=== PATIENT | female | born 1975 | race Caucasian/White ===

== ENCOUNTER 2016-10-03 18:55 | Emergency (ER) | payer MEDICAID ==
[~2016-10-03] VITALS: Ht 172.7 cm; Wt 68.9 kg
[2016-10-03 19:03] VITALS: BP 153/104
[2016-10-03] MEDS ORDERED: methylPREDNISolone SOD SUCC 125 MG/2 ML VL IM ONE (20:45)
[2016-10-03] MEDS ORDERED: cefTRIAXone SOD 1,000 MG VL IM ONE (20:45)
== END 2016-10-03 22:06 | disposition home or self-care (01) ==
LOC: ER 18:55
DX: J02.9 Acute pharyngitis, unspecified (principal); F20.9 Schizophrenia, unspecified
CPT/HCPCS: 96372; 99284; J0696; J2930

== ENCOUNTER 2025-02-13 03:08 | Inpatient (IN) | payer MEDICAID, OTHER ==
[2025-02-13] VITALS (32 sets, daily range): BP systolic 119–186; BP diastolic 63–88; PULSE 89–103; RESP 13–21; TEMP 98.1–98.3; O2SAT 91–99
[~2025-02-13] VITALS: Ht 172.7 cm; Wt 7.0 kg
--- NOTE | 2025-02-13 03:25 | ED.PDOC ---
HPI (NEURO) HPI Comments 49-year-old female came to ER due to weakness. Patient states about 30 minutes prior to arrival, she noted sudden onset left-sided weakness/numbness. Unable to hold anything with her left hand, and put any pressure on her left foot. Patient states feeling weak and fatigued all week, and has been having headaches since yesterday. She also noted having slurring of speech, but no facial asymmetry was seen. Upon arrival blood pressure was 191/103 mm Hg Chief Complaint: Left Sided Weakness Time Seen by MD: 03:24 Primary Care Provider: NONE Reviewed Notes: Nurses Notes Information Source: Patient Mode of Arrival: Ambulatory Severity: Moderate Dizziness/Weakness Severity: Unable to do activities Headache Severity: Moderate Timing: Minutes Duration: Since onset Prehospital treatment: None Headache Quality: Aching Headache Location: Generalized Weakness Location: (L) Sided Numbness Location: (L) Sided Onset: With light exertion Circumstances: Spontaneous Symptoms: Weakness, Numbness, Difficult speech History of: None Associated Signs and Symptoms: Headache, Weakness, Numbness Past Medical History PAST MEDICAL HISTORY: Depression Surgical History: Denies all surgeries [employer]EL[employer] 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 Family History Family History: Reviewed,noncontributory to illness Social History Smoker: Non-Smoker Alcohol: Denies ETOH Use Drugs: Denies Drug Use Lives In: Home Constitutional: denies: chills, diaphoresis, fatigue, fever, malaise, sweats, weakness, others EENTM: reports: blurred vision; denies: double vision, ear bleeding, ear discharge, ear drainage, ear pain, ear ringing, eye pain, eye redness, hearing l oss, mouth pain, mouth swelling, nasal discharge, nose bleeding, nose congestion, nose pain, photophobia, tearing, throat pain, throat swelling, voice changes, others Respiratory: denies: cough, hemoptysis, orthopnea, SOB at rest, shortness of breath, SOB with excertion, stridor, wheezing, others Cardiovascular: denies: chest pain, dizzy spells, diaphoresis, Dyspnea on exertion, edema, irregular heart beat, left arm pain, lightheadedness, palpitations, PND, syncope, others Gastrointestinal: denies: abdomen distended, abdominal pain, blood streaked bowels, constipated, diarrhea, dysphagia, difficulty swallowing, hematemesis, melena, nausea, poor appetite, poor fluid intake, rectal bleeding, rectal pain, vomiting, others Genitourinary: denies: abnormal vagina bleeding, burning, dyspareunia, dysuria, flank pain, frequency, hematuria, incontinence, pain, , vagina discharge, urgency, others Neurological: reports: headache, left sided numbness, left sided weakness, speech problems, weakness; denies: dizziness, fainting, numbness, paresthesia, pre-existing deficit, right sided numbness, right sided weakness, seizure, tingling, tremors, others Musculoskeletal: denies: back pain, gout, joint pain, joint swelling, muscle pain, muscle stiffness, neck pain, others Integumetry: denies: bruises, change in color, change in hair/nails, dryness, laceration, lesions, lumps, rash, wounds, others Allergic/Immunocompromised: denies: Difficulty Healing, Frequent Infections, Hives, Itching, others Hematologic/Lymphatic: denies: anemia, blood clots, easy bleeding, easy bruising, swollen glands, others Endocrine: denies: excessive hunger, excessive sweating, excessive thirst, excessive urination, flushing, intolerance to cold, intolerance to heat, unexplained weight gain, unexplained weight loss, others Psychiatric: denies: anxiety, bipolar disorder, depression, hopeless, panic disorder, schizophrenia, sleepless, suicidal, others Physical Exam General Appearance: No Apparent Distress, Normal HEENT: Normal ENT Inspection, Pharynx Normal, TMs Normal Neck: Full Range of Motion, Non-Tender, Normal, Normal Inspection Respiratory: Chest Non-Tender, Lungs Clear, No Accessory Muscle Use, No Respiratory Distress, Normal Breath Sounds Cardiovascular: No Edema, No JVD, No Murmur, No Gallop, Normal Peripheral Pulses, Regular Rate/Rhythm Breast Exam: Deferred Gastrointestinal: No Organomegaly, Non Tender, No Pulsatile Mass, Normal Bowel Sounds, Soft Genitalia: Deferred Pelvic: Deferred Rectal: Deferred Extremities: No calf tenderness, Normal capillary refill, Normal inspection, Normal range of motion, Non-tender, No pedal edema Musculoskeletal : Apperance: Normal Neurologic: Alert, slip filler II-XII nml as Tested, No Motor Deficits, Normal Affect, Normal Mood, No Sensory Deficits Cerebellar Function: Normal Reflexes: Normal Skin: Dry, Normal Color, Warm Lymphatic: No Adenopathy Was a procedure done? Was a procedure done?: No Differential Diagnosis (SZ) CVA: Alan's Palsy, CVA, Electrolyte Imbalance, Encephalopathy, Hypoglycemia, TIA X-Ray, Labs, Meds, VS Vital Signs Date Time Temp Pulse Resp B/P (MAP) Pulse Ox O2 Delivery O2 Flow Rate FiO2 02/13/25 03:49 171/92 02/13/25 03:35 Room Air* 0 21 02/13/25 03:35 97.9 99 22 171/92 (118) 95 97.9 02/13/25 03:31 101 02/13/25 03:09 98.1 71 18 173/95 97 98.1 Lab Test 02/13/25 03:26 Range/Units White Blood Count 7.3 4.4-10.8 10^3/uL Red Blood Count 4.38 4.0-5.20 10^6/uL Hemoglobin 7.9 L 12.2-16.2 g/dL Hematocrit 26.8 L 36.0-46.0 % Mean Corpuscular Volume 61.3 L 80.0-100.0 fL Mean Corpuscular Hemoglobin 18.1 L 28.0-32.0 pg Mean Corpuscular Hemoglobin Concent 29.5 L 32.0-36.0 g/dL Red Cell Distribution Width 22.0 H 11.8-14.3 % Platelet Count 681 H 140-450 10^3/uL Mean Platelet Volume 6.6 L 6.9-10.8 fL Neutrophils (%) (Auto) 55.7 37.0-80.0 % Lymphocytes (%) (Auto) 31.4 10.0-50.0 % Monocytes (%) (Auto) 7.6 0.0-12.0 % Eosinophils (%) (Auto) 3.7 0.0-7.0 % Basophils (%) (Auto) 1.6 0.0-2.0 % Neutrophils # (Auto) 4.1 1.6-8.6 10 ^3/uL Lymphocytes # (Auto) 2.3 0.4-5.4 10 ^3/uL Monocytes # (Auto) 0.6 0-1.3 10 ^3/uL Eosinophils # (Auto) 0.3 0-0.8 10 ^3/uL Basophils # (Auto) 0.1 0-0.2 10 ^3/uL Nucleated Red Blood Cells 0.1 % Platelet Estimate Increased Hypochromasia (manual) Moderate Anisocytosis (manual) Slight Microcytosis Moderate Prothrombin Time 10.3 9.3-11.8 sec Prothrombin Time INR 0.97 0.9-1.15 Activated Partial Thromboplast Time 20.7 L 24.5-34.5 SEC Sodium Level 139 136-145 mmol/L Potassium Level 3.1 L 3.5-5.1 mmol/L Chloride Level 105 98-107 mmol/L Carbon Dioxide Level 23 20-31 mmol/L Anion Gap 11 5-15 Blood Urea Nitrogen 14 9-23 mg/dL Creatinine 0.97 0.550-1.02 mg/dL Glomerular Filtration Rate Calc 71 >90 mL/min BUN/Creatinine Ratio 14.4 10.0-20.0 Serum Glucose 95 74-106 mg/dL Calcium Level 9.4 8.7-10.4 mg/dL Total Bilirubin 0.4 0.2-1.0 mg/dL Aspartate Amino Transferase (AST) 35 13-40 U/L Alanine Aminotransferase (ALT) 29 7-40 U/L Alkaline Phosphatase 114 46-116 U/L Troponin I High Sensitivity 11 </=34 ng/L Total Protein 8.3 H 5.7-8.2 g/dL Albumin 4.7 3.2-4.8 g/dL Current Medications Medications (Trade) Dose Ordered Sig/Abraham Route Start Time Stop Time Status Last Admin Hydralazine HCl (Apresoline Injection) 10 mg ONCE ONCE IV 02/13/25 03:45 02/13/25 03:46 DC 02/13/25 03:49 EXAM: CT HEAD WITHOUT CONTRAST HISTORY: left sided weakness COMPARISON: None TECHNIQUE: Noncontrast axial CT images of the head were performed. Sagittal and coronal reformatted images were obtained. This CT exam was performed using 1 or more of the following dose reduction techniques: Automated exposure control, adjustment of the mA and/or kv according to patient size, or the use of iterative reconstruction techniques. Radiation Dose: CTDI volume is 60.25 mGy. Dose-length product is 1185.42 mGy*cm FINDINGS: No intracranial hemorrhage, mass, midline shift, hydrocephalus, or evidence of acute large vessel infarct. There are old lacunar infarcts of the right basal ganglia and right frontal periventricular white matter. There is mildly divergent optic gaze. The partially-visualized paranasal sinuses are clear. The bilateral mastoid air cells and middle ear spaces are clear. No cranial fracture or scalp edema. IMPRESSION: Chronic ischemic changes without evidence of acute intracranial process. Time of 1ST Reevaluation: 03:20 Reevaluation 1ST: Unchanged Patient Education/Counseling: Diagnosis, Treatment Family Education/Counseling: No Family Present Departure 1 Departure Time of Disposition: 04:35 Impression: Primary Impression: Left-sided weakness Additional Impressions: Iron deficiency anemia Hypokalemia Disposition: ADMITTED INPATIENT Admit to: Tele Condition: Guarded Comments 49-year-old female has been having some left-sided weakness she states that is feels clumsy on her left arm in her left leg for the last 4 hours. Unprovoked. Her NIHSS scale is is 1 with some mild pronator drift to the left arm. She has a lack of focal deficits and therefore is not tPA thrombolytic candidate. Her CT of her head shows no acute pathology. Patient will need to be admitted that though with the left arm drift for TIA versus peripheral neuropathy. Patient was given aspirin. She was also given hydralazine for hypertension and noted to have hypokalemia on her lab results. Patient does have a history of anemia and her hemoglobin today is 7.9 and is microcytic likely iron deficiency anemia. Patient states that she does have a history of this in the past. NIH Stroke Scale/Score (NIHSS) from [employer] on 02/13/2025 All calculations should be rechecked by clinician prior to use RESULT SUMMARY: 1 points NIH Stroke Scale INPUTS: 1A: Level of consciousness > 0 = Alert; keenly responsive 1B: Ask month and age > 0 = Both questions right 1C: 'Blink eyes' & 'squeeze hands' > 0 = Performs both tasks 2: Horizontal extraocular movements > 0 = Normal 3: Visual sinclair > 0 = No visual loss 4: Facial palsy > 0 = Normal symmetry 5A: Left arm motor drift > 1 = Drift, but doesn't hit bed 5B: Right arm motor drift > 0 = No drift for 10 seconds 6A: Left leg motor drift > 0 = No drift for 5 seconds 6B: Right leg motor drift > 0 = No drift for 5 seconds 7: Limb Ataxia > 0 = No ataxia 8: Sensation > 0 = Normal; no sensory loss 9: Language/aphasia > 0 = Normal; no aphasia 10: Dysarthria > 0 = Normal 11: Extinction/inattention > 0 = No abnormality Critical Care Note Critical Care Time?: Yes (35 min-critical care time only) Stability Stability form required: No Heart Score Heart Score: Heart Score Response (Comments) Value History N/A 0 EKG N/A 0 Age N/A 0 Risk Factors N/A 0 Troponin N/A 0 Total 0 I personally scribed for POPPY RICHEY MD ([email or web address]) on 02/13/25 at 03:25. Electronically submitted by Cory Dennison ([employer]). I personally scribed for POPPY RICHEY MD ([email or web address]) on 02/13/25 at 04:22. Electronically submitted by Cory Dennison ([email or web address]). POPPY RICHEY MD Feb 13, 2025 03:25
[2025-02-13 03:42] LABS: Hemoglobin 7.9 g/dL (12.2-16.2)
[2025-02-13 03:44] LABS: Hematocrit 26.8 % (36.0-46.0); Mean Corpuscular Hemoglobin 18.1 pg (28.0-32.0); Mean Corpuscular Volume 61.3 fL (80.0-100.0); Nucleated Red Blood Cells % 0.1 %
[2025-02-13] MEDS: hydrALAZINE HCL 20 MG/ML VL IV ONE (03:49)
[2025-02-13 03:56] LABS: Alanine Aminotransferase 29 U/L (7-40); Albumin 4.7 g/dL (3.2-4.8); Alkaline Phosphatase 114 U/L (46-116); Anion Gap 11 (5-15); Anisocytosis Slight; BUN/Creatinine Ratio 14.4 (10.0-20.0); Bilirubin, Total 0.4 mg/dL (0.2-1.0); Blood Urea Nitrogen 14 mg/dL (9-23); Calcium 9.4 mg/dL (8.7-10.4); Carbon Dioxide 23 mmol/L (20-31); Chloride 105 mmol/L (98-107); Glucose 95 mg/dL (74-106); INR 0.97 (0.9-1.15); Partial Thromboplastin Time 20.7 SEC (24.5-34.5); Prothrombin Time 10.3 sec (9.3-11.8); Sodium 139 mmol/L (136-145)
[2025-02-13 03:59] LABS: Potassium 3.1 mmol/L (3.5-5.1); Total Protein 8.3 g/dL (5.7-8.2)
--- NOTE | 2025-02-13 04:10 | DVH ---
EXAM: CT HEAD WITHOUT CONTRAST HISTORY: left sided weakness COMPARISON: None TECHNIQUE: Noncontrast axial CT images of the head were performed. Sagittal and coronal reformatted i mages were obtained. This CT exam was performed using 1 or more of the following dose reduction techn iques: Automated exposure control, adjustment of the mA and/or kv according to patient size, or the u se of iterative reconstruction techniques. Radiation Dose: CTDI volume is 60.25 mGy. Dose-length product is 1185.42 mGy*cm FINDINGS: No intracranial hemorrhage, mass, midline shift, hydrocephalus, or evidence of acute large vessel inf arct. There are old lacunar infarcts of the right basal ganglia and right frontal periventricular whi te matter. There is mildly divergent optic gaze. The partially-visualized paranasal sinuses are clear . The bilateral mastoid air cells and middle ear spaces are clear. No cranial fracture or scalp edema . IMPRESSION: Chronic ischemic changes without evidence of acute intracranial process.
[2025-02-13] MEDS: POTASSIUM CHL 20 Meq TABLET PO ONE (04:45)
[2025-02-13] MEDS: LORazepam 2MG/ML-1ML VIAL IV ONE (04:45)
[2025-02-13] MEDS: IOHEXOL 350 MG/ML 100ML IJ ONE (04:49)
[2025-02-13 05:55] LABS: Iron 12.0 ug/dL (50-170)
[2025-02-13 05:56] LABS: Total Iron Binding Capacity 503.0 ug/dL (250-425)
--- NOTE | 2025-02-13 06:02 | ECG ---
[facility] Test Date: 2025-02-13 Test Time: 03:31:13 Pat Name: MICHOACANO TUCKER Department: ED Room: 0215T Gender: F Marriage Therapist: GEORGE : 1975 Requested By: POPPY RICHEY Order Number: [id number] Reading MD: Abdirahman De Leon Measurements Intervals [place] Rate: 101 P: 21 TN: 155 QRS: 95 QRSD: 101 T: 0 QT: 356 QTc: 462 Interpretive Statements Sinus tachycardia Borderline right axis deviation Borderline T abnormalities, inferior leads Electronically Signed On 02-15-2025 22:52:45 PDT by Abdirahman De Leon Please click the below link to view image of tracing.
--- NOTE | 2025-02-13 06:18 | DVH ---
EXAM: XY CHEST XRAY 1 VIEW HISTORY: SOB COMPARISON: None TECHNIQUE: Portable AP view of the chest was performed. FINDINGS: No pneumothorax, consolidative infiltrates, or pulmonary edema. The heart is borderline enlarged. The re is likely a moderate to large hiatal hernia. IMPRESSION: 1. No acute intrathoracic process. 2. Probable moderate to large hiatal hernia.
--- NOTE | 2025-02-13 06:26 | DVHINCON2 ---
Date of Consultation Date Date: 02/13/25 History of Present Illness History of Present Illness [facility] Note # Demographics Consult Type: Acute Stroke Level 2 (4.5-24 hrs) Patient Location: Emergency Room First Name: ADEOLA Last Name: GARRETT Date of : 1975 Age: 49 Gender: Female Facility: [facility] Time of Initial Page (): 02/13/2025 05:48 First Contact with Site (): 02/13/2025 05:49 # HPI Chief Complaint: - weakness (focal) - numbness History: 49yof with HTN, iron deficiency anemia who p/w L sided weakness and numbness. SBP 190s/100s. She was awake playing a game with her roommate when this occurred around 3:30AM. She denies any previous L sided weakness or any previous similar symptoms. Last Known Normal: - I have collected independent history specific to time last normal or last known well. We have collaborated with the provider and at this time, we have the most current timeline with the information that is available. 3:30AM Possible Thrombolytic candidate: - not on warfarin or NOACs - no intracranial hemorrhage history - no recent major surgery - no known active major internal bleeding - no known blood disorders - no stroke in last 3 months # Scores Time of exam and NIHSS (): 02/13/2025 06:03 Level of Consciousness 1a: [0] = Alert; keenly responsive LOC Questions 1b: [0] = Answers both questions correctly LOC Commands 1c: [0] = Performs both tasks correctly Best Gaze 2: [0] = Normal Visual 3: [0] = No visual loss Facial Palsy 4: [1] = Minor paralysis Motor Arm Left 5a: [1] = Drift Motor Arm Right 5b: [0] = No drift Motor Leg Left 6a: [1] = Drift Motor Leg Right 6b: [0] = No drift Limb Ataxia 7: [0] = Absent Sensory 8: [1] = [id number] sensory loss Best Language 9: [0] = No aphasia Dysarthria 10: [1] = [id number] dysarthria Extinction and Inattention 11: [0] = No abnormality NIHSS Total: 5 # Data Time Head CT personally read by me (): 02/13/2025 06:[address]: - no bleed - preliminarily reviewed by me, please refer to radiology read for official reading chronic R caudate infarcts Time CTA personally reviewed by me (): 02/13/2025 06:11 CTA Head: - no large vessel occlusion - preliminarily reviewed by me, please refer to radiology read for official reading # Assessment Impression: - Ischemic Stroke (Acute) # Plan Thrombolytic/Intervention: IV Thrombolysis Thrombolytic Dosing: IV tenecteplase 0.25 mg/kg, max dose 25 mg; single bolus IVP over 5 seconds Time IV Thrombolytic Recommended (): 02/13/2025 06:06 Blood Pressure Management: Use labetolol 10-20mg IV PRN or nicardipine gtt to maintain BP parameters Target Blood Pressure: BP goal <180/105 for 24 hours post thrombolytic administration Imaging: (urgency: STAT): - CT Angiogram Head and CT Angiogram Neck AND call back with results if abnormal - CT Perfusion AND callback with results if abnormal Imaging: (urgency: routine): - MRI Brain without contrast Diagnostic Test: - echo with bubble study Telemetry monitoring to assess for a fib Therapy/Evaluation: - NPO until swallow evaluation - PT/OT evaluation - speech/swallow consultation Medication: No antiplatelets or anticoagulation for next 24 hours unless indicated for emergent IA procedure or other life threatening situation Atorvastatin 80mg daily, goal LDL <70 Thrombolytic Administration Recommendations: - I reviewed the risks/benefits/alternatives of IV thrombolytic therapy with the patient. They understand there is potential of life threatening hemorrhage from IV thrombolysis. I stated that I believe benefits outweighs risk. They wish to proceed with IV thrombolytic therapy. - BP goal< 180/105 for 24hrs post Thrombolytic administration - Use Labetalol 10-20mg IV prn or Nicardipine gtt to maintain BP parameters - No antiplatelets or anticoagulants for next 24 hrs unless indicated for emergent IA procedure or other life threatening situation - ICU admission - Call back if there is any decline in neurological condition Other: - If patient has any neurological deterioration please call me back immediately - I have discussed my recommendations with the referring provider Additional Recommendations: Post thrombolytic monitoring and frequent neuro checks ICU admission # Logistics Attestation of consult completion: The patient is located at: [facility]. Facility staff participated in the visit. I performed this telemedicine visit from my offsite office utilizing interactive 2 way audio and visual telecommunication technology at the request of the onsite emergency room provider. Total time spent in telemedicine encounter: I spent 23 minutes reviewing clinical data and/or imaging, obtaining history, examining the patient, communi cating with the onsite care team, and in preparation of this report. # Demographics First Name: ADEOLA Last Name: [place] Facility: [facility] Allergies: Coded Allergies: NO KNOWN ALLERGIES (Unverified , 03/20/16) Physical Examination General Examination: Last Vital sign Vital Signs Date Time Temp Pulse Resp B/P (MAP) Pulse Ox O2 Delivery O2 Flow Rate FiO2 02/13/25 06:00 107 12 179/88 (118) 98 02/13/25 03:35 Room Air* 0 21 02/13/25 03:35 97.9 97.9 General: General: No apparent distress, appears comfortable. Cooperative. Neurological Examination: Neurological Examination: Mental Status: Cranial Nerves: Motor Examination: Reflexes: Sensory: Coordination: Gait: Labs: Labs: Laboratory Tests Test 02/13/25 03:26 02/13/25 05:49 Range/Units White Blood Count 7.3 4.4-10.8 10^3/uL Red Blood Count 4.38 4.0-5.20 10^6/uL Hemoglobin 7.9 L 12.2-16.2 g/dL Hematocrit 26.8 L 36.0-46.0 % Mean Corpuscular Volume 61.3 L 80.0-100.0 fL Mean Corpuscular Hemoglobin 18.1 L 28.0-32.0 pg Mean Corpuscular Hemoglobin Concent 29.5 L 32.0-36.0 g/dL Red Cell Distribution Width 22.0 H 11.8-14.3 % Platelet Count 681 H 140-450 10^3/uL Mean Platelet Volume 6.6 L 6.9-10.8 fL Neutrophils (%) (Auto) 55.7 37.0-80.0 % Lymphocytes (%) (Auto) 31.4 10.0-50.0 % Monocytes (%) (Auto) 7.6 0.0-12.0 % Eosinophils (%) (Auto) 3.7 0.0-7.0 % Basophils (%) (Auto) 1.6 0.0-2.0 % Neutrophils # (Auto) 4.1 1.6-8.6 10 ^3/uL Lymphocytes # (Auto) 2.3 0.4-5.4 10 ^3/uL Monocytes # (Auto) 0.6 0-1.3 10 ^3/uL Eosinophils # (Auto) 0.3 0-0.8 10 ^3/uL Basophils # (Auto) 0.1 0-0.2 10 ^3/uL Nucleated Red Blood Cells 0.1 % Platelet Estimate Increased Hypochromasia (manual) Moderate Anisocytosis (manual) Slight Microcytosis Moderate Prothrombin Time 10.3 9.3-11.8 sec Prothrombin Time INR 0.97 0.9-1.15 Activated Partial Thromboplast Time 20.7 L 24.5-34.5 SEC Sodium Level 139 136-145 mmol/L Potassium Level 3.1 L 3.5-5.1 mmol/L Chloride Level 105 98-107 mmol/L Carbon Dioxide Level 23 20-31 mmol/L Anion Gap 11 5-15 Blood Urea Nitrogen 14 9-23 mg/dL Creatinine 0.97 0.550-1.02 mg/dL Glomerular Filtration Rate Calc 71 >90 mL/min BUN/Creatinine Ratio 14.4 10.0-20.0 Serum Glucose 95 74-106 mg/dL Calcium Level 9.4 8.7-10.4 mg/dL Iron Level 12 L 50-170 ug/dL Total Iron Binding Capacity 503 H 250-425 ug/dL Percent Iron Saturation 2.4 L 15-50 % Ferritin Pending Total Bilirubin 0.4 0.2-1.0 mg/dL Aspartate Amino Transferase (AST) 35 13-40 U/L Alanine Aminotransferase (ALT) 29 7-40 U/L Alkaline Phosphatase 114 46-116 U/L Troponin I High Sensitivity 11 15 </=34 ng/L Total Protein 8.3 H 5.7-8.2 g/dL Albumin 4.7 3.2-4.8 g/dL Assessment/Plan Assessment/Plan Assessment and Plan:Adeola Orr is a 49 year old female who presents with Plan discussed with: Patient CHARITO BRAMBILA MD Feb 13, 2025 06:26
--- NOTE | 2025-02-13 06:29 | DVHHPRES ---
History of Present Illness Resident Creating Document: ALLEN ZALDIVAR History of Present Illness Ms. Terrance Orr is a 49-year-old female with no known allergies who presented to the ED with acute onset neurologic symptoms. Approximately 30 minutes prior to arrival, the patient developed slurred speech, left-sided weakn ess and gaze deviation. Initial examination she was noted to have dysarthria left lower extremity weakness(2/5 strenght), and left upper extremity weakness(3/5 strength). There was also evidence of divergent gaze. Head CT scan showed no acute intracranial hemorrhage but did reveal chronic ischemic changes and old lacunar infarcts in the right basal ganglia and right f rontal periventricular white matter. MRI of the head and CT scan of the neck are pending. After tele neurology consultation, the patient was deemed a candidate for IV tPA, as she presented within the 3-hour window and had no contraindications. Blood pressure goal prior to tPA initiation was set to less than 180/105. Nicardipine and hydralazine was used to control blood pressure, which was 191/103. Urine drug screen ordered. The patient was found to have potassium 3.1, which was repleted with KCl. EKG revealed no arrhythmia or ischemic changes.Neuro checks every 2 hours and we will admit the patient to ICU. Past medical history: Unknown, she is not aware of having hypertension or diabetes. Past surgical history: None Smoking history: 35 pack years. He 3.5 packs/day for 10 years. Alcohol: Occasionally Drugs: Denies marijuana use, phentermine PCP:Dr. Doherty Review of Systems Neurological: Weakness, Numbness Allergies: Coded Allergies: NO KNOWN ALLERGIES (Unverified , 03/20/16) Exam Vital Signs Vital Signs Date Time Temp Pulse Resp B/P (MAP) Pulse Ox O2 Delivery O2 Flow Rate FiO2 02/13/25 06:00 107 12 179/88 (118) 98 02/13/25 03:35 Room Air* 0 21 02/13/25 03:35 97.9 97.9 Exam Pt is lying on bed General Appearance: Alert, Oriented X3, Cooperative, Mild distress HEENT: Atraumatic, Mucous membranes moist/pink Respiratory: Clear to auscultation, Normal air movement, No added sounds Cardiovascular: Regular rate, Normal S1, Normal S2, No murmurs Abdominal/ : Active bowel sounds, Soft, no distention, no tenderness Extremities: No edema, Normal pulses, No tenderness/swelling Skin: No Significant rash, except past surgical scars Neuro: Gaze deviated,Dysarthria, left-sided weakness noted. Left arm strength 3/5 and left lower extremity strength 2/5. Psych/Mental Status: Mental status NL, Mood NL Nurse was there as claim professional during examination Labs/Xrays Labs Test 02/13/25 05:49 02/13/25 03:26 Range/Units Troponin I High Sensitivity 15 </=34 ng/L White Blood Count 7.3 4.4-10.8 10^3/uL Red Blood Count 4.38 4.0-5.20 10^6/uL Hemoglobin 7.9 L 12.2-16.2 g/dL Hematocrit 26.8 L 36.0-46.0 % Mean Corpuscular Volume 61.3 L 80.0-100.0 fL Mean Corpuscular Hemoglobin 18.1 L 28.0-32.0 pg Mean Corpuscular Hemoglobin Concent 29.5 L 32.0-36.0 g/dL Red Cell Distribution Width 22.0 H 11.8-14.3 % Platelet Count 681 H 140-450 10^3/uL Mean Platelet Volume 6.6 L 6.9-10.8 fL Neutrophils (%) (Auto) 55.7 37.0-80.0 % Lymphocytes (%) (Auto) 31.4 10.0-50.0 % Monocytes (%) (Auto) 7.6 0.0-12.0 % Eosinophils (%) (Auto) 3.7 0.0-7.0 % Basophils (%) (Auto) 1.6 0.0-2.0 % Neutrophils # (Auto) 4.1 1.6-8.6 10 ^3/uL Lymphocytes # (Auto) 2.3 0.4-5.4 10 ^3/uL Monocytes # (Auto) 0.6 0-1.3 10 ^3/uL Eosinophils # (Auto) 0.3 0-0.8 10 ^3/uL Basophils # (Auto) 0.1 0-0.2 10 ^3/uL Nucleated Red Blood Cells 0.1 % Platelet Estimate Increased Hypochromasia (manual) Moderate Anisocytosis (manual) Slight Microcytosis Moderate Prothrombin Time 10.3 9.3-11.8 sec Prothrombin Time INR 0.97 0.9-1.15 Activated Partial Thromboplast Time 20.7 L 24.5-34.5 SEC Sodium Level 139 136-145 mmol/L Potassium Level 3.1 L 3.5-5.1 mmol/L Chloride Level 105 98-107 mmol/L Carbon Dioxide Level 23 20-31 mmol/L Anion Gap 11 5-15 Blood Urea Nitrogen 14 9-23 mg/dL Creatinine 0.97 0.550-1.02 mg/dL Glomerular Filtration Rate Calc 71 >90 mL/min BUN/Creatinine Ratio 14.4 10.0-20.0 Serum Glucose 95 74-106 mg/dL Calcium Level 9.4 8.7-10.4 mg/dL Iron Level 12 L 50-170 ug/dL Total Iron Binding Capacity 503 H 250-425 ug/dL Percent Iron Saturation 2.4 L 15-50 % Total Bilirubin 0.4 0.2-1.0 mg/dL Aspartate Amino Transferase (AST) 35 13-40 U/L Alanine Aminotransferase (ALT) 29 7-40 U/L Alkaline Phosphatase 114 46-116 U/L Total Protein 8.3 H 5.7-8.2 g/dL Albumin 4.7 3.2-4.8 g/dL SEPSIS Sepsis Screen Date sepsis recognized/suspect: Feb 13, 2025 Time Sepsis recognized/suspect: 308 Recent Procedure: No On Antibiotic Therapy: No Respiratory Rate >20: No Heart Rate >90: No Temp<36 C (96.8 F) or >38.3 C: No SBP <90 or MAP <65 mmHG: No New Acute Mental Status Change: No Is the patient on CPAP, BIPAP,: No Physician Orders Troponin-I Hs (02/13/25 09:00) Troponin-I Hs (02/13/25 12:00) Heplock Iv (02/13/25 03:20) Troponin-I Hs (02/13/25 06:20) Head Without Contrast (02/13/25 03:20) Vital Signs .PER UNIT PROTOCOL (02/13/25 04:23) Angio Head/Neck (02/13/25 04:23) Chest Xray 1 View (02/13/25 04:23) * Neurology Consult (02/13/25 04:23) Nursing Dysphagia Screen (02/13/25 04:23) Neuro Checks Per Unit Protocol (02/13/25 04:23) Ferritin (02/13/25 05:31) Brain Head Wo Contrast (02/13/25 05:14) Admit (02/13/25 06:19) Allergies (02/13/25 06:19) Code Status (02/13/25 06:19) Oxygen Per Hour (02/13/25 06:19) Complete Blood Count (02/14/25 04:00) Npo (Nothing By Mouth) Diet (02/13/25 Breakfast) Notify Of Changes From Base (02/13/25 06:19) District Resource Officer For 24 Hours (02/13/25 06:19) Emergency Dysrhythmia Protocol (02/13/25 06:19) Rhythm Strips Once Every Shift (02/13/25 06:19) Vital Signs Date Time Temp Pulse Resp B/P (MAP) Pulse Ox O2 Delivery O2 Flow Rate FiO2 02/13/25 06:00 107 12 179/88 (118) 98 02/13/25 04:00 98 19 159/79 (105) 96 02/13/25 03:49 171/92 02/13/25 03:35 Room Air* 0 21 02/13/25 03:35 97.9 99 22 171/92 (118) 95 97.9 02/13/25 03:31 101 02/13/25 03:09 98.1 71 18 173/95 97 98.1 Laboratory Tests Test 02/13/25 03:26 White Blood Count 7.3 10^3/uL (4.4-10.8) Medications Medications Dose Ordered Sig/Abraham Route Start Time Stop Time Status Last Admin Dose Admin Aspirin 162 mg ONCE ONCE PO 02/13/25 04:45 02/13/25 04:46 DC 02/13/25 04:45 162 MG Hydralazine HCl 10 mg ONCE ONCE IV 02/13/25 03:45 02/13/25 03:46 DC 02/13/25 03:49 10 MG Lorazepam 1 mg ONCE ONCE IV 02/13/25 04:45 02/13/25 04:46 DC 02/13/25 04:45 1 MG Potassium Chloride 20 meq ONCE ONCE PO 02/13/25 04:45 02/13/25 04:46 DC 02/13/25 04:45 20 MEQ Assessment/Plan Assessment/Plan Acute ischemic stroke Head CT scan: No acute intracranial hemorrhage. Chronic ischemic changes without evidence of acute intracranial process. Old lacunar infarcts of the right basal ganglia and right frontal periventricular white matter. There is mildly divergent optic gaze. MRI of the head ordered, pending results. CT scan of the head and neck ordered, pending results. Neuro check every 2 hours. Tele neuro consulted. After discussion with the Neurologist and patient, we started tPA. There was no contraindication for administering tPA. Because the presentation of the stroke was within the 3-hour window. Recommended blood pressure before starting tPA is 180/105. NPO and swallow evaluation. Hypokalemia Repleted GI prophylaxis: Pantoprazole DVT prophylaxis: SCDs Diet: NPO until swallow evaluation Goals of care discussed with the patient for more than 27 minutes: Full code status Case discussed with , patient and RN Plan discussed with: Patient, Other My Orders Orders - ALLEN ZALDIVAR Procedure Category Date Status Time Brain Head Wo Contrast MRI 02/13/25 Logged 05:14 Admit ADMIT 02/13/25 Transmitted 06:19 Allergies [facility] 02/13/25 In Process 06:19 Code Status CODE 02/13/25 Transmitted 06:19 Oxygen Per Hour RT 02/13/25 Transmitted 06:19 Complete Blood Count LAB 02/14/25 Verified 04:00 Npo (Nothing By DIET 02/13/25 Transmitted Mouth) Diet Breakfast Notify Md Of Changes [facility] 02/13/25 In Process From Base 06:19 District Resource Officer For [facility] 02/13/25 In Process 24 Hours 06:19 Emergency Dysrhythmia [facility] 02/13/25 In Process Protocol 06:19 Rhythm Strips Once [facility] 02/13/25 In Process Every Shift 06:19 Date of Service: Feb 13, 2025 Billing Provider: MUNA MCMANUS MD Common Visit Codes: [id number] INP/OBS CARE (HIGH) Secondary Visit Codes: [id number] CARE PLAN 30 MINUTES ALLEN ZALDIVAR Feb 13, 2025 06:29
--- NOTE | 2025-02-13 06:37 | DVH ---
EXAM: CT ANGIO HEAD/NECK HISTORY: left sided weakness COMPARISON: CT HEAD WITHOUT CONTRAST on DOS: 02/13/25 TECHNIQUE: High-resolution helical CT images of the head and neck were performed with IV contrast uti lizing CTA protocol. Sagittal and coronal reformatted images and 3-D MIP reconstructions were obtaine d. This CT exam was performed using one or more of the following dose reduction techniques: Automated exposure control, adjustment of the mA and/or kV according to patient size, or use of iterative camelia nstruction technique. Radiation Dose: CT Dose: CTDI volume is 22.21 mGy. Dose-length product is 831.02 mGy*cm FINDINGS: [place] of [place]: No evidence of aneurysmal dilatation or significant stenosis about the ci rcle of [place]. The bilateral MCAs, ACAs, and glass etcher helper are widely patent. The cavernous and petrous ICAs are patent. Right carotid system: No significant stenosis of the CCA, ICA, or ECA origin. The cervical ICA is tor tuous. Left carotid system: No significant stenosis of the CCA, ICA, or ECA origin. The cervical ICA is tort uous. Vertebrobasilar: The bilateral vertebral arteries and basilar artery are patent. The left vertebral a rtery is dominant. Miscellaneous: There are hypoattenuating nodules in the right lobe of the thyroid. There is palatine tonsillar hypertrophy with mild narrowing of the oropharyngeal airway, without evidence of tonsillar abscess. There are multiple dental caries. There is mucosal thickening of the left frontal and bilate ral ethmoid sinuses there is advanced degenerative disc disease C5-C6 and C6-C7, with [id number] e spinal canal stenosis at those levels. There is bilateral facet arthropathy, overall greater on th e left. There is significant neural foraminal stenosis at C5-C6 on the right and C6-C7 bilaterally. IMPRESSION: 1. No aneurysmal dilatation or significant stenosis about the [place] of [place]. 2. No significant stenosis of the bilateral cervical carotid arteries or vertebral arteries. 3. Mild paranasal sinus disease. 4. [place] tonsillar hypertrophy with mild narrowing of the oropharyngeal airway, without evidence o f tonsillar abscess. 5. Multiple dental caries. Recommend outpatient dental consultation. 6. Thyroid nodules. Recommend outpatient thyroid ultrasound. 7. Cervical degenerative disc disease and facet arthropathy with [id number] spinal canal stenos is at C5-C6 and C6-C7, multilevel significant neural foraminal stenosis as above. Recommend follow-u p outpatient noncontrast MRI of the cervical spine for better characterization as there may be mass e ffect on the cervical spinal cord at multiple levels.
[2025-02-13] MEDS ORDERED: ALTEPLASE (RECOMBINANT) 100 MG VIAL IV ONE (06:45)
[2025-02-13] MEDS: TENECTEPLASE 50mg/10ml KIT IV ONE ×2 (06:53→06:57)
[2025-02-13 07:12] LABS: Hematocrit 25.9 % (36.0-46.0); Hemoglobin 7.7 g/dL (12.2-16.2); Mean Corpuscular Hemoglobin 18.1 pg (28.0-32.0); Mean Corpuscular Volume 61.1 fL (80.0-100.0); Nucleated Red Blood Cells % 0.0 %
[2025-02-13 07:30] LABS: INR 1.0 (0.9-1.15); Partial Thromboplastin Time 21.1 SEC (24.5-34.5); Prothrombin Time 10.6 sec (9.3-11.8)
[2025-02-13 07:32] LABS: Alanine Aminotransferase 29 U/L (7-40); Albumin 4.4 g/dL (3.2-4.8); Alkaline Phosphatase 108 U/L (46-116); Anion Gap 12 (5-15); BUN/Creatinine Ratio 10.8 (10.0-20.0); Bilirubin, Total 0.4 mg/dL (0.2-1.0); Blood Urea Nitrogen 9 mg/dL (9-23); Calcium 8.9 mg/dL (8.7-10.4); Carbon Dioxide 20 mmol/L (20-31); Chloride 106 mmol/L (98-107); Glucose 87 mg/dL (74-106); Potassium 3.0 mmol/L (3.5-5.1); Sodium 138 mmol/L (136-145); Total Protein 7.9 g/dL (5.7-8.2)
[2025-02-13] MEDS: NICARDIPINE HCL IN SODIUM CHLO 200 ML IV SCH (08:40)
--- NOTE | 2025-02-13 09:28 | DVHPN2 ---
Subjective Continues to have complaints of weakness to left arm and leg. She does state that her left arm has improved since coming in the hospital. Reviewed: Care Plan, H&P, Labs Changes from previous H/P or p: No Changes General: Per HPI Objective Vitals Vital Signs Date Time Temp Pulse Resp B/P (MAP) Pulse Ox O2 Delivery O2 Flow Rate FiO2 02/13/25 08:40 157/77 02/13/25 08:15 103 20 97 02/13/25 07:45 97.9 97.9 02/13/25 07:45 Room Air* 0 21 General Appearance: Alert, Oriented X3, Cooperative, mild distress HEENT: Atraumatic, PERRLA Lungs: Clear to auscultation, Normal air movement Cardiovascular: Normal S1, Normal S2 Abdomen: Normal bowel sounds, Soft, No tenderness Genitourinary: No Apparent Abnormalities Musculoskeletal: Weak motor strength LUE, Weak motor strength LLE Extremities: No clubbing, No cyanosis, No edema, Normal pulses, No tenderness/swelling Neuro: Normal speech Skin: Dry, Intact Psych/Mental Status: Mental status NL, Mood NL Medications Current Medications Medications Dose Ordered Sig/Abraham Route Start Time Stop Time Status Last Admin Dose Admin Nicardipine/ Sodium Chloride 200 ml @ 50 mls/hr Q4H IV 02/13/25 06:45 02/13/25 08:40 50 MLS/HR Potassium Chloride/Sodium Chloride 1,000 ml @ 100 mls/hr Q10H IV 02/13/25 09:00 UNV Laboratory Results Laboratory Tests 02/13/25 06:55 Chemistry Test 02/13/25 03:26 02/13/25 06:55 Albumin 4.7 g/dL (3.2-4.8) 4.4 g/dL (3.2-4.8) Calcium Level 9.4 mg/dL (8.7-10.4) 8.9 mg/dL (8.7-10.4) Total Protein 8.3 g/dL (5.7-8.2) H 7.9 g/dL (5.7-8.2) Coagulation Test 02/13/25 03:26 02/13/25 06:55 Prothrombin Time 10.3 sec (9.3-11.8) 10.6 sec (9.3-11.8) Prothrombin Time INR 0.97 (0.9-1.15) 1.00 (0.9-1.15) Activated Partial Thromboplast Time 20.7 SEC (24.5-34.5) L 21.1 SEC (24.5-34.5) L LFT Test 02/13/25 03:26 02/13/25 06:55 Alanine Aminotransferase (ALT) 29 U/L (7-40) 29 U/L (7-40) Alkaline Phosphatase 114 U/L (46-116) 108 U/L (46-116) Aspartate Amino Transferase (AST) 35 U/L (13-40) 35 U/L (13-40) Total Bilirubin 0.4 mg/dL (0.2-1.0) 0.4 mg/dL (0.2-1.0) Labs and/or images reviewed: Labs reviewed by me, Image(s) reviewed by me Assessment/Plan Assessment/Plan Impression: -acute CVA -hypokalemia -hypertensive crisis Plan: -permissive hypertensive, controlled blood pressure with nicardipine drip to keep systolic blood pressure greater than 180 and diastolic blood pressure less than 105 -potassium replacement -gentle IV hydration -PUD prophylaxis -no vena puncture for 24 hours after tPA infusion -q.2 hours neuro checks -repeat labs in a.m. -echocardiogram with bubble study Critical care time spent with patient discussing and formulating plan of care: 40 minutes. This does not include time spent performing procedures. This medical document was created using an electronic medical record system with [employer] dictation system. Although this document has been carefully reviewed, there may still be some phonetic and typographical errors. These areas are purely typographical due to imperfections of the software programs, and do not reflect any compromise in the patient's medical care. Plan discussed with: Patient, Other (RN) My Orders Orders - ERWIN SWAIN NP Procedure Category Date Status Time Echo 2d Mode Cardiac US 02/13/25 Logged DOP 08:52 Sod Chl 0.9%/ Kcl PHA 02/13/25 Logged 20meq 09:00 Drug Screen LAB 02/13/25 Logged 08:56 Date of Service: Feb 13, 2025 Billing Provider: ERWIN SWAIN NP Common Visit Codes: [id number] CARE 30-74 MIN ERWIN SWAIN NP Feb 13, 2025 09:27
[2025-02-13 10:31] LABS: Amphetamine Screen, Urine Pos (NEGATIVE); Barbiturate Scree,Urine Neg (NEGATIVE); Benzodiazephine Screen, Urine Neg (NEGATIVE); Cannabinoid Screen, Urine Neg (NEGATIVE); Cocaine Screen, Urine Neg (NEGATIVE); Opiate Scree,Urine Neg (NEGATIVE); Phencyclidine Screen, Urine Neg (NEGATIVE)
[2025-02-13] MEDS: SOD CHL 0.9%/ KCL 20MEQ 1,000 ML IV SCH (10:44)
--- NOTE | 2025-02-13 15:57 | DVH ---
MRI BRAIN HEAD WO CONTRAST INDICATION: R/o acute ischemic stroke EXAM DATE: 02/13/2025 03:04 PM COMPARISON: CT ANGIO HEAD/NECK on DOS: 02/13/25, CT HEAD WITHOUT CONTRAST on DOS: 02/13/25 PROCEDURE: Using a 1.5 Samantha scanner, multisequence multiplanar imaging of the brain was obtained. FINDINGS: Tiny foci of acute infarct along the right caudate body. The brain otherwise shows normal m orphology and signal characteristics. No abnormal T2 hyperintensity, or susceptibility hypointensity is present. The ventricles are normal in size. The midline structures are intact. The major intracran ial flow voids are present. The aerated spaces are normal. The orbital contents and extracranial soft tissues appear normal. IMPRESSION: Tiny foci of acute infarct along the right caudate body / right parietal lobe. Critical Result: Infarct Findings discussed with dr. murphy at 02/13/2025 03:53 PM and acknowledged receipt and understanding of the findings.
[2025-02-13] MEDS ORDERED: LABETALOL HCL 20 MG/4 ML VL IV PRN (16:45)
[2025-02-14] VITALS (60 sets, daily range): BP systolic 124–198; BP diastolic 66–97; PULSE 81–101; RESP 13–25; TEMP 98.1–98.7; O2SAT 93–100
--- NOTE | 2025-02-14 03:12 | DVHSR ---
APPROVED REPORT EXAM: Two-dimensional and M-mode echocardiogram with Doppler, color Doppler and Bubble Study. Blood Pressure: 157/77 mmHg INDICATION Acute CVA RISK FACTORS Height: 5' 8", Weight: 187 DIMENSIONS LVDd4.6 (3.8-5.7cm)LA (2D)3.7 (1.9-4.0cm)Aortic Root2.9 (2.0-3.7cm) LVDs3.1 (2.5-4.0cm)LA (MM) (1.9-4.0cm)Aortic Cusp Exc1.6 (1.5-2.0cm) EF (%) 60.0 (55-70%)Rt. Atrium4.1 (1.9-4.0cm)Asc. Aorta cm IVSd1.1 (0.7-1.1cm)RV (D) (1.8-2.4cm) PWd1.1 (0.7-1.1cm) Mitral Valve MitralMitral Stenosis E wave0.90m/sMV Mean GR.mmHg A wave1.20m/sMV Peak GR.mmHg E/A ratio0.82D MVAcm2 Aortic Valve Aortic ValveAortic Stenosis V11.30m/Jimenez Mean GR.13mmHg V22.40m/Jimenez Peak GR.24mmHg LVOT Diameter2.3 (1.8-2.4cm)Doppler AVA2.25cm2 Pulmonic Valve V21.30m/s Conclusion HYPERDYNAMIC LV DUE TO TACHYCARDIA LV EF IS 70% NORMAL VALVES NORMAL RV FUNCTION NO EFFUSION
--- NOTE | 2025-02-14 09:12 | DVH ---
CT HEAD WITHOUT CONTRAST Indication: s/p TPA infusion for Acute CVA EXAM DATE: 02/14/2025 08:24 AM COMPARISON: MRI BRAIN HEAD WO CONTRAST on DOS: 02/13/25, TECHNIQUE: CT of the head without intravenous contrast. RADIATION DOSE: CTDIvol: 57.35 mGy, DLP: 919 mGy*cm FINDINGS: There is no intracranial hemorrhage. There is no extra-axial fluid, mass, mass effect or midline shif t. The ventricles are midline and normal in size. Basilar cisterns are patent. Old bilateral basal ga nglia lacunar infarcts. Old right dodson radiata infarct. Evolving acute right dodson radiata infarc tion. Mastoids well pneumatized. Ethmoid sinus mucosal thickening.. Imaged portion of the orbits are unrema rkable. IMPRESSION: No intracranial hemorrhage or mass effect. Evolving acute right dodson radiata infarction better seen on previous MRI. Old bilateral basal ganglia lacunar infarcts. Old right dodson radiata infarct.
[2025-02-14 09:50] LABS: Hematocrit 24.8 % (36.0-46.0); Hemoglobin 7.2 g/dL (12.2-16.2); Mean Corpuscular Hemoglobin 18.0 pg (28.0-32.0)
[2025-02-14 09:51] LABS: Mean Corpuscular Volume 61.9 fL (80.0-100.0); Nucleated Red Blood Cells % 0.1 %
--- NOTE | 2025-02-14 10:06 | DVHPN2 ---
Subjective Motor deficits resolved. Patient denies any symptoms. Reviewed: Care Plan, H&P, Labs Changes from previous H/P or p: Changes General: Per HPI Objective Vitals Vital Signs Date Time Temp Pulse Resp B/P (MAP) Pulse Ox O2 Delivery O2 Flow Rate FiO2 02/14/25 09:49 98 02/14/25 09:48 16 97 Room Air* 0 21 02/14/25 09:45 02/14/25 08:00 98.7 98.7 Intake/Output Intake and Output 02/14/25 07:00 Intake Total 2862 ml Balance 2862 ml Intake Oral 500 ml IV Total 2362 ml # Voids 2 General Appearance: Alert, Oriented X3, Cooperative, mild distress HEENT: Atraumatic, PERRLA Lungs: Clear to auscultation, Normal air movement Cardiovascular: Normal S1, Normal S2 Abdomen: Normal bowel sounds, Soft, No tenderness Genitourinary: No Apparent Abnormalities Musculoskeletal: Normal sensory function, Normal motor function Extremities: No clubbing, No cyanosis, No edema, Normal pulses, No tenderness/swelling Neuro: Normal speech Skin: Dry, Intact Psych/Mental Status: Mental status NL, Mood NL Medications Current Medications Medications Dose Ordered Sig/Abraham Route Start Time Stop Time Status Last Admin Dose Admin Labetalol HCl 10 mg Q2HPRN PRN IV 02/13/25 16:45 Melatonin 10 mg PRN PO 02/13/25 20:30 Acetaminophen 650 mg Q8HPRN PRN PO 02/13/25 20:45 Ferrous Sulfate 325 mg BIDWM PO 02/14/25 18:00 Amlodipine Besylate 10 mg DAILY PO 02/14/25 10:00 Laboratory Results Laboratory Tests 02/14/25 09:38 Chemistry Test 02/14/25 09:38 Albumin Pending Calcium Level Pending Total Protein Pending LFT Test 02/14/25 09:38 Alanine Aminotransferase (ALT) Pending Alkaline Phosphatase Pending Aspartate Amino Transferase (AST) Pending Total Bilirubin Pending Labs and/or images reviewed: Labs reviewed by me, Image(s) reviewed by me Assessment/Plan Assessment/Plan Impression: -acute CVA -hypokalemia -hypertensive crisis Plan: Events: Patient has regained movement to left upper and lower extremity. Noted to be ambulating. Patient also left against medical advice to smoke yesterday while in the emergency room. Long discussion made with the patient regarding abstaining from all illicit drugs and alcohol. UDS positive for amphetamines. Repeat CT scan of the head negative for any signs of intracranial hemorrhage. -advance diet. Stop IV fluids -PUD prophylaxis -q.2 hours neuro checks -repeat labs in a.m. -echocardiogram with bubble study: Unremarkable -transferred to telemetry floor -start p.o. antihypertensives Total time spent with patient discussing and formulating plan of care: 35 minutes. This medical document was created using an electronic medical record system with [employer] dictation system. Although this document has been carefully reviewed, there may still be some phonetic and typographical errors. These areas are purely typographical due to imperfections of the software programs, and do not reflect any compromise in the patient's medical care. Plan discussed with: Patient, Other (RN) My Orders Orders - ERWIN SWAIN NP Procedure Category Date Status Time Labetalol Hcl PHA 02/13/25 In Process (Labetalol Hcl) 16:45 Cardiac DIET 02/13/25 Transmitted Diet-2gna,Lofat,Lochol Dinner Mrsa Screen REYNA 02/13/25 In Process 17:[address] 02/14/25 Resulted 08:08 Ferrous Sulfate Tablet PHA 02/14/25 In Process 18:00 Transfer Orders XFER 02/14/25 Transmitted 09:46 Amlodipine Tablet PHA 02/14/25 In Process (Norvasc Tablet) 10:00 Date of Service: Feb 14, 2025 Billing Provider: ERWIN SWAIN NP Common Visit Codes: [id number] INP/OBS CARE(HIGH) ERWIN SWAIN NP Feb 14, 2025 10:06
[2025-02-14 10:09] LABS: Alanine Aminotransferase 25 U/L (7-40); Albumin 4.0 g/dL (3.2-4.8); Alkaline Phosphatase 113 U/L (46-116); Anion Gap 8 (5-15); BUN/Creatinine Ratio 12.0 (10.0-20.0); Bilirubin, Total 0.7 mg/dL (0.2-1.0); Carbon Dioxide 22 mmol/L (20-31); Sodium 139 mmol/L (136-145); Total Protein 7.1 g/dL (5.7-8.2)
[2025-02-14 10:34] LABS: Blood Urea Nitrogen 9 mg/dL (9-23); Calcium 8.1 mg/dL (8.7-10.4); Chloride 109 mmol/L (98-107); Glucose 129 mg/dL (74-106); Potassium 3.3 mmol/L (3.5-5.1)
[2025-02-14] MEDS: POTASSIUM CHL 20 Meq TABLET PO ONE (11:58)
[2025-02-14] MEDS: FERROUS SULFATE 325mg EC TAB PO SCH (16:13)
--- NOTE | 2025-02-14 18:13 | DVHINCON2 ---
Date of service: Feb 14, 2025 Referring Physician Ben Reason for Consultation Acute stroke History of Present Illness Ms. Roe with a 49 years old right-handed female with a history of overweight, she was brought to the [facility] on 02/13/2025 with a chief complaint of left-sided weakness. At that time, he is alert and fully oriented, her 's with her in the room, they provided the following hist ory On 02/13/2025, she developed acute memory difficulty, and left-sided weakness in that she was not able to apple picker a can of Coke, in the emergency room, after tele stroke consultation, the patient has received TNK protocol with good result, at this time, she is released the memory and left-sided weakness has completely recovered She denies history of hypertension, diabetes, she does not snore UDS, 02/03/2025: Amphetamine WBC/HB/PLT/MCV, 02/14/2025: 5.8/7.2/590/61.9 CMP, 02/14/2025: Unremarkable Echocardiogram, 02/14/2025: HYPERDYNAMIC LV DUE TO TACHYCARDIA LV EF IS 70% NORMAL VALVES NORMAL RV FUNCTION NO EFFUSION CT head, 02/13/2025: Chronic ischemic changes without evidence of acute intracranial process. CTA head, neck, 02/13/2025: 1. No aneurysmal dilatation or significant stenosis about the [place]. 2. No significant stenosis of the bilateral cervical carotid arteries or vertebral arteries. 3. Mild paranasal sinus disease. 4. Jeremiah tonsillar hypertrophy with mild narrowing of the oropharyngeal airway, without evidence of tonsillar abscess. 5. Multiple dental caries. Recommend outpatient dental consultation. 6. Thyroid nodules. Recommend outpatient thyroid ultrasound. 7. Cervical degenerative disc disease and facet arthropathy with [id number] spinal canal stenosis at C5-C6 and C6-C7, multilevel significant neural foraminal stenosis as above. Recommend follow-up outpatient noncontrast MRI of the cervical spine for better characterization as there may be mass effect on the cervical spinal cord at multiple levels. MRI head, 02/13/25: Tiny foci of acute infarct along the right caudate body / right parietal lobe. Past Medical History Depression, overweight Past Surgical History No major surgeries Family History COPD Social History She smokes, but no history of drug/alcohol abuse Allergies: Coded Allergies: NO KNOWN ALLERGIES (Unverified , 9/20/16) Current Medications Current Medications Medications (Trade) Dose Ordered Sig/Abraham Route PRN Reason Start Time Stop Time Status Last Admin Melatonin (Melatonin) 10 mg PRN PO 02/13/25 20:30 Acetaminophen (Tylenol Tablet) 650 mg Q8HPRN PRN PO PAIN SCALE 1-3 OR TEMP>100.4 02/13/25 20:45 Ferrous Sulfate 325 mg BIDWM PO 02/14/25 18:00 02/14/25 16:13 Amlodipine Besylate (Norvasc Tablet) 10 mg DAILY PO 02/14/25 10:00 02/14/25 10:07 Review of Systems As above, the other systems are negative Vital Signs Vital Signs Date Time Temp Pulse Resp B/P (MAP) Pulse Ox O2 Delivery O2 Flow Rate FiO2 02/14/25 17:38 92 02/14/25 17:37 16 97 Room Air* 0 21 02/14/25 17:00 124/77 (93) 02/14/25 12:00 98.1 98.1 Physical Exam GENERAL EXAM: General: the patient is well developed and nourished. No acute distress. HEENT: Normocephalic, neck is supple, no carotid bruits. No mass. RESPIRATORY: Normal respiratory effort with symmetrical lung expansion. Lungs clear to auscultation. CARDIOVASCULAR: Regular rate and rhythm with no murmurs. S1, S2. ABDOMEN: Soft, nontender, normal bowel sound MUSCULOSKELETAL EXAM: No pain in the knees NEUROLOGICAL: MENTAL STATUS: Awake and alert. Oriented to person, place, time and general circumstances. Able to give personal history. SPEECH, LANGUAGE, HIGHER CORTICAL FUNCTION: no aphasia or dysathria. CRANIAL NERVES: #2: Intact visual sinclair to confrontation. The optic discs were sharp. Retinal background was uniformly pink in appearance. There was no hemorrhages or exudates. #3,4,6: Pupils are equal, round and reactive. EOMs full and conjugate. Mild bilateral gaze evoked nystagmus. #5: Facial sensation intact in all three divisions bilaterally. Mandibular strength intact. #7: Facial muscles symmetrical and strength intact. #8: Hearing grossly normal to voice. #9,10: Uvula and soft palate rise in the midline. Swallow and voice are normal. #11: Trapezius and sternomastoid strength intact bilaterally. #12: Tongue midline. No fasciculations or atrophy. SENSATION: Sensation to touch and pinprick is normal. MOTOR: Normal tone in the upper and lower extremity. Normal muscle bulk. No fasciculations. No abnormal movements or posturing. Muscle strength of the major groups in the right extremities is 5/5. Muscle strength of the major groups in the left extremities is close to 5/5, with mild drift in both arms and leg REFLEXES: Deep tendon reflexes are symmetrical. No pathological reflexes. CEREBELLAR/COORDINATION: Finger to nose and heel to mckee are normal bilaterally. GAIT/STATION: deferred. Labs/Diagnostic Data Labs Test 02/14/25 09:38 02/13/25 08:56 02/13/25 06:55 02/13/25 03:26 Range/Units White Blood Count 5.8 # 4.4-10.8 10^3/uL Red Blood Count 4.00 4.0-5.20 10^6/uL Hemoglobin 7.2 L 12.2-16.2 g/dL Hematocrit 24.8 L 36.0-46.0 % Mean Corpuscular Volume 61.9 L 80.0-100.0 fL Mean Corpuscular Hemoglobin 18.0 L 28.0-32.0 pg Mean Corpuscular Hemoglobin Concent 29.1 L 32.0-36.0 g/dL Red Cell Distribution Width 22.7 H 11.8-14.3 % Platelet Count 590 H 140-450 10^3/uL Mean Platelet Volume 6.5 L 6.9-10.8 fL Neutrophils (%) (Auto) 58.0 37.0-80.0 % Lymphocytes (%) (Auto) 27.3 10.0-50.0 % Monocytes (%) (Auto) 8.4 0.0-12.0 % Eosinophils (%) (Auto) 4.8 0.0-7.0 % Basophils (%) (Auto) 1.5 0.0-2.0 % Neutrophils # (Auto) 3.4 1.6-8.6 10 ^3/uL Lymphocytes # (Auto) 1.6 0.4-5.4 10 ^3/uL Monocytes # (Auto) 0.5 0-1.3 10 ^3/uL Eosinophils # (Auto) 0.3 0-0.8 10 ^3/uL Basophils # (Auto) 0.1 0-0.2 10 ^3/uL Nucleated Red Blood Cells 0.1 % Sodium Level 139 136-145 mmol/L Potassium Level 3.3 L 3.5-5.1 mmol/L Chloride Level 109 H 98-107 mmol/L Carbon Dioxide Level 22 20-31 mmol/L Anion Gap 8 5-15 Blood Urea Nitrogen 9 9-23 mg/dL Creatinine 0.75 0.550-1.02 mg/dL Glomerular Filtration Rate Calc 97 >90 mL/min BUN/Creatinine Ratio 12.0 10.0-20.0 Serum Glucose 129 H 74-106 mg/dL Calcium Level 8.1 L 8.7-10.4 mg/dL Total Bilirubin 0.7 0.2-1.0 mg/dL Aspartate Amino Transferase (AST) 30 13-40 U/L Alanine Aminotransferase (ALT) 25 7-40 U/L Alkaline Phosphatase 113 46-116 U/L Total Protein 7.1 5.7-8.2 g/dL Albumin 4.0 3.2-4.8 g/dL Urine Opiates Screen Neg NEGATIVE Urine Fentanyl Screen Neg NEGATIVE Urine Barbiturates Screen Neg NEGATIVE Urine Phencyclidine Screen Neg NEGATIVE Urine Amphetamines Screen Pos NEGATIVE Urine Benzodiazepines Screen Neg NEGATIVE Urine Cocaine Screen Neg NEGATIVE Urine Cannabinoids Screen Neg NEGATIVE Prothrombin Time 10.6 9.3-11.8 sec Prothrombin Time INR 1.00 0.9-1.15 Activated Partial Thromboplast Time 21.1 L 24.5-34.5 SEC Troponin I High Sensitivity 14 </=34 ng/L Platelet Estimate Increased Hypochromasia (manual) Moderate Anisocytosis (manual) Slight Microcytosis Moderate Iron Level 12 L 50-170 ug/dL Total Iron Binding Capacity 503 H 250-425 ug/dL Percent Iron Saturation 2.4 L 15-50 % Ferritin 4.0 L 10-291 ng/mL Microbiology Date/Time Source Procedure Growth Status 02/13/25 17:28 Nose MRSA Screen - Final Methicillin Resistant S.aureus Complete Assessment Acute cognitive dysfunction, left hemiparesis, secondary to acute stroke, good recovery Acute memory loss Secondary to acute stroke ? Partial complex seizure Plan/Recommendation Monitoring Supportive treatment Telemetry EEG Lipid profile VISH Aspirin 81 mg daily Plavix 75 mg daily for 21 days Lipitor 20 mg for now Quit smoking Stroke risk factors discussed, include tobacco smoking, sleep related breathing disorder, substance abuse Healthy lifestyle discussed More recommendation per clinical course This medical document was created using an electronic medical record system with [employer] dictation system. Although this document has been carefully reviewed, there may still be some phonetic and typographical errors. These areas are purely typographical due to imperfections of the software programs, and do not reflect any compromise in the patient's medical care. Plan discussed with: Patient, Spouse, Other LAUREN ZAMARRIPA MD Feb 14, 2025 18:13
[2025-02-14] MEDS: ACETAMINOPHEN 325 MG TAB PO PRN (18:24)
[2025-02-14 20:50] LABS: Triglycerides 68 mg/dL (< 150)
[2025-02-14 20:52] LABS: Cholesterol 141 mg/dL (< 200); HDL Cholesterol 44 mg/dL (40-59)
[2025-02-14] MEDS: ATORVASTATIN 20 MG TAB PO SCH (22:08)
[2025-02-14] MEDS: ATORVASTATIN 20 MG TAB PO ONE (22:08)
[2025-02-14] MEDS: MELATONIN 5 MG TAB PO SCH (22:09)
[2025-02-15] VITALS (7 sets, daily range): BP systolic 122–158; BP diastolic 67–94; PULSE 83–101; RESP 14–20; TEMP 97.2–98.9; O2SAT 96–98
--- NOTE | 2025-02-15 01:16 | DVHINCON2 ---
Date of service: Feb 14, 2025 Referring Physician Thomas Reason for Consultation VISH History of Present Illness This is a 49-year-old female who presented to the ED on 02/13 with c/o sudden onset left-sided weakness/numbness. Unable to hold anything with her left hand, and put any pressure on her left foot. Patient states feeling weak and fatigued all week, and has been having headaches. CT Head showed no acute intracranial hemorrhage but did reveal chronic ischemic changes and old lacunar infarcts in the right basal ganglia and right frontal periventricular white matter. Tele neurology consultation, the patient was deemed a candidate for IV tPA, as she presented within the 3-hour window and had no contraindications. Blood pressure goal prior to tPA initiation was set to less than 180/105. Nicardipine and hydralazine was used to control blood pressure, which was 191/103. EKG revealed no arrhythmia or ischemic changes. Patient was admitted to the hospital. MRI brain: Tiny foci of acute infarct along the right caudate body / right parietal lobe. I am asked to consult on this patient. Allergies: Coded Allergies: NO KNOWN ALLERGIES (Unverified , 03/20/16) Current Medications Current Medications Medications (Trade) Dose Ordered Sig/Abraham Route PRN Reason Start Time Stop Time Status Last Admin Ferrous Sulfate 325 mg BIDWM PO 02/14/25 18:00 02/14/25 16:13 Amlodipine Besylate (Norvasc Tablet) 10 mg DAILY PO 02/14/25 10:00 02/14/25 10:07 Atorvastatin Calcium (Lipitor) 20 mg HS PO 02/14/25 22:00 02/14/25 22:08 Clopidogrel Bisulfate (Plavix) 75 mg DAILY PO 02/15/25 10:00 03/08/25 23:00 Review of Systems Constitutional: denies: chills, diaphoresis, fatigue, fever, malaise, sweats, weakness, others EENTM: reports: blurred vision; denies: double vision, ear bleeding, ear discharge, ear drainage, ear pain, ear ringing, eye pain, eye redness, hearing loss, mouth pain, mouth swelling, nasal discharge, nose bleeding, nose congestion, nose pain, photophobia, tearing, throat pain, throat swelling, voice changes, others Respiratory: denies: cough, hemoptysis, orthopnea, SOB at rest, shortness of br eath, SOB with excertion, stridor, wheezing, others Cardiovascular: denies: chest pain, dizzy spells, diaphoresis, Dyspnea on exertion, edema, irregular heart beat, left arm pain, lightheadedness, palpitations, PND, syncope, others Gastrointestinal: denies: abdomen distended, abdominal pain, blood streaked bowels, constipated, diarrhea, dysphagia, difficulty swallowing, hematemesis, melena, nausea, poor appetite, poor fluid intake, rectal bleeding, rectal pain, vomiting, others Genitourinary: denies: abnormal vagina bleeding, burning, dyspareunia, dysuria, flank pain, frequency, hematuria, incontinence, pain, , vagina discharge, urgency, others Neurological: reports: headache, left sided numbness, left sided weakness, speech problems, weakness; denies: dizziness, fainting, numbness, paresthesia, pre-existing deficit, right sided numbness, right sided weakness, seizure, tingling, tremors, others Musculoskeletal: denies: back pain, gout, joint pain, joint swelling, muscle pain, muscle stiffness, neck pain, others Integumetry: denies: bruises, change in color, change in hair/nails, dryness, laceration, lesions, lumps, rash, wounds, others Allergic/Immunocompromised: denies: Difficulty Healing, Frequent Infections, Hives, Itching, others Hematologic/Lymphatic: denies: anemia, blood clots, easy bleeding, easy bruising, swollen glands, others Endocrine: denies: excessive hunger, excessive sweating, excessive thirst, excessive urination, flushing, intolerance to cold, intolerance to heat, unexplained weight gain, unexplained weight loss, others Psychiatric: denies: anxiety, bipolar disorder, depression, hopeless, panic disorder, schizophrenia, sleepless, suicidal, others Vital Signs Vital Signs Date Time Temp Pulse Resp B/P (MAP) Pulse Ox O2 Delivery O2 Flow Rate FiO2 02/14/25 21:00 98.5 91 18 136/74 (94) 97 98.5 02/14/25 20:00 Room Air* 0 21 Physical Exam GENERAL: Alert and oriented x 3. No acute distress. EYES: PERRL, EOMI. Anicteric. HENT: Moist mucous membranes. LUNGS: Clear to auscultation bilaterally. CARDIOVASCULAR: Regular rate and rhythm. ABDOMEN: Soft, non-tender and non-distended. EXTREMITIES: No edema. NEUROLOGIC: Left sided weakness. SKIN: Warm, dry. Labs/Diagnostic Data Labs Test 02/14/25 09:38 02/13/25 08:56 02/13/25 06:55 02/13/25 03:26 Range/Units White Blood Count 5.8 # 4.4-10.8 10^3/uL Red Blood Count 4.00 4.0-5.20 10^6/uL Hemoglobin 7.2 L 12.2-16.2 g/dL Hematocrit 24.8 L 36.0-46.0 % Mean Corpuscular Volume 61.9 L 80.0-100.0 fL Mean Corpuscular Hemoglobin 18.0 L 28.0-32.0 pg Mean Corpuscular Hemoglobin Concent 29.1 L 32.0-36.0 g/dL Red Cell Distribution Width 22.7 H 11.8-14.3 % Platelet Count 590 H 140-450 10^3/uL Mean Platelet Volume 6.5 L 6.9-10.8 fL Neutrophils (%) (Auto) 58.0 37.0-80.0 % Lymphocytes (%) (Auto) 27.3 10.0-50.0 % Monocytes (%) (Auto) 8.4 0.0-12.0 % Eosinophils (%) (Auto) 4.8 0.0-7.0 % Basophils (%) (Auto) 1.5 0.0-2.0 % Neutrophils # (Auto) 3.4 1.6-8.6 10 ^3/uL Lymphocytes # (Auto) 1.6 0.4-5.4 10 ^3/uL Monocytes # (Auto) 0.5 0-1.3 10 ^3/uL Eosinophils # (Auto) 0.3 0-0.8 10 ^3/uL Basophils # (Auto) 0.1 0-0.2 10 ^3/uL Nucleated Red Blood Cells 0.1 % Sodium Level 139 136-145 mmol/L Potassium Level 3.3 L 3.5-5.1 mmol/L Chloride Level 109 H 98-107 mmol/L Carbon Dioxide Level 22 20-31 mmol/L Anion Gap 8 5-15 Blood Urea Nitrogen 9 9-23 mg/dL Creatinine 0.75 0.550-1.02 mg/dL Glomerular Filtration Rate Calc 97 >90 mL/min BUN/Creatinine Ratio 12.0 10.0-20.0 Serum Glucose 129 H 74-106 mg/dL Calcium Level 8.1 L 8.7-10.4 mg/dL Total Bilirubin 0.7 0.2-1.0 mg/dL Aspartate Amino Transferase (AST) 30 13-40 U/L Alanine Aminotransferase (ALT) 25 7-40 U/L Alkaline Phosphatase 113 46-116 U/L Total Protein 7.1 5.7-8.2 g/dL Albumin 4.0 3.2-4.8 g/dL Triglycerides Level 68 < 150 mg/dL Cholesterol Level 141 < 200 mg/dL LDL Cholesterol 100 H < 100 mg/dL HDL Cholesterol 44 40-59 mg/dL Urine Opiates Screen Neg NEGATIVE Urine Fentanyl Screen Neg NEGATIVE Urine Barbiturates Screen Neg NEGATIVE Urine Phencyclidine Screen Neg NEGATIVE Urine Amphetamines Screen Pos NEGATIVE Urine Benzodiazepines Screen Neg NEGATIVE Urine Cocaine Screen Neg NEGATIVE Urine Cannabinoids Screen Neg NEGATIVE Prothrombin Time 10.6 9.3-11.8 sec Prothrombin Time INR 1.00 0.9-1.15 Activated Partial Thromboplast Time 21.1 L 24.5-34.5 SEC Troponin I High Sensitivity 14 </=34 ng/L Platelet Estimate Increased Hypochromasia (manual) Moderate Anisocytosis (manual) Slight Microcytosis Moderate Iron Level 12 L 50-170 ug/dL Total Iron Binding Capacity 503 H 250-425 ug/dL Percent Iron Saturation 2.4 L 15-50 % Ferritin 4.0 L 10-291 ng/mL Microbiology Date/Time Source Procedure Growth Status 02/13/25 17:28 Nose MRSA Screen - Final Methicillin Resistant S.aureus Complete Assessment Acute CVA. Hypokalemia. Hypertensive crisis. Plan/Recommendation I agree with your ongoing assessment and care of plan. VISH. IV antibiotics as ordered. Follow up on cultures. Additional plan as per the hospital course. A total of 45 minutes was spent reviewing the patient record, examining the patient, making a diagnostic and therapeutic plan, discussing this plan with medical personnel, following up on diagnostic studies and following the patient for clinical stability excluding any and all procedures. At least 50% of this time was spent in direct, [id number] contact. Plan discussed with: Patient ELINOR BALES MD Feb 15, 2025 01:16
[2025-02-15] MEDS: CLOPIDOGREL BISULFATE 75 MG TAB PO SCH (08:50)
--- NOTE | 2025-02-15 14:19 | DVHPN2 ---
Subjective Motor deficits resolved. Patient denies any symptoms. Reviewed: Care Plan, H&P, Labs Changes from previous H/P or p: No Changes General: Per HPI Objective Vitals Vital Signs Date Time Temp Pulse Resp B/P (MAP) Pulse Ox O2 Delivery O2 Flow Rate FiO2 02/15/25 12:30 98.9 101 16 150/88 (108) 96 98.9 02/15/25 08:00 Room Air* 0 21 Intake/Output Intake and Output 02/15/25 07:00 Intake Total 1700 ml Balance 1700 ml Intake Oral 1400 ml IV Total 300 ml # Voids 8 # Bowel Movements 1 General Appearance: Alert, Oriented X3, Cooperative, mild distress HEENT: Atraumatic, PERRLA Lungs: Clear to auscultation, Normal air movement Cardiovascular: Normal S1, Normal S2 Abdomen: Normal bowel sounds, Soft, No tenderness Genitourinary: No Apparent Abnormalities Musculoskeletal: Normal sensory function, Normal motor function Extremities: No clubbing, No cyanosis, No edema, Normal pulses, No tenderness/swelling Neuro: Normal speech Skin: Dry, Intact Psych/Mental Status: Mental status NL, Mood NL Medications Current Medications Medications Dose Ordered Sig/Abraham Route Start Time Stop Time Status Last Admin Dose Admin Labetalol HCl 10 mg Q2HPRN PRN IV 02/13/25 16:45 Melatonin 10 mg PRN PO 02/13/25 20:30 02/14/25 22:09 10 MG Acetaminophen 650 mg Q8HPRN PRN PO 02/13/25 20:45 02/15/25 12:40 650 MG Ferrous Sulfate 325 mg BIDWM PO 02/14/25 18:00 02/15/25 08:50 325 MG Amlodipine Besylate 10 mg DAILY PO 02/14/25 10:00 02/15/25 08:51 10 MG Atorvastatin Calcium 20 mg HS PO 02/14/25 22:00 02/14/25 22:08 20 MG Clopidogrel Bisulfate 75 mg DAILY PO 02/15/25 10:00 03/08/25 23:00 02/15/25 08:50 75 MG Nicotine 1 patch DAILY TD 02/16/25 10:00 UNV Laboratory Results Laboratory Tests 02/14/25 09:38 Microbiology Microbiology Date/Time Source Procedure Growth Status 02/13/25 17:28 Nose MRSA Screen - Final Methicillin Resistant S.aureus Complete Labs and/or images reviewed: Labs reviewed by me, Image(s) reviewed by me Assessment/Plan Assessment/Plan Impression: -acute CVA -hypokalemia -hypertensive crisis Plan: Events: Discussed case with neurologist, Dr. Guzman. Cardiology consultation was placed for VISH. Plans for VISH tomorrow. -PUD prophylaxis -q.2 hours neuro checks -repeat labs in a.m. -echocardiogram with bubble study: Unremarkable -continue current p.o. antihypertensives -NPO after midnight Total time spent with patient discussing and formulating plan of care: 35 minutes. This medical document was created using an electronic medical record system with [employer] dictation system. Although this document has been carefully reviewed, there may still be some phonetic and typographical errors. These areas are purely typographical due to imperfections of the software programs, and do not reflect any compromise in the patient's medical care. Plan discussed with: Patient, Other (RN) My Orders Orders - ERWIN SWAIN NP Procedure Category Date Status Time Nicotine 21mg/24hr PHA 02/15/25 In Process (Nicoderm 21mg/24hr) 13:30 Nicotine 21mg/24hr PHA 02/16/25 Logged (Nicoderm 21mg/24hr) 10:00 Npo After Midnight ANJANA 02/15/25 Verified 14:17 Npo (Nothing By DIET 02/16/25 Verified Mouth) Diet Breakfast Date of Service: Feb 15, 2025 Billing Provider: ERWIN SWAIN NP Common Visit Codes: [id number] INP/OBS CARE(HIGH) ERWIN SWAIN NP Feb 15, 2025 14:19
[2025-02-15] MEDS: NICOTINE 21MG/24 HR TOPICAL PATCH TD ONE (15:27)
--- NOTE | 2025-02-15 21:18 | DVHPN2 ---
Progress Note - Dictate Date Seen: Feb 15, 2025 Medical Necessity Reason Pt with a Central, PICC or Fol: No Subjective Ms. Roe with a 49 years old right-handed female with a history of overweight, she was brought to the [facility] on 02/13/2025 with a chief complaint of left-sided weakness. I have seen examined the patient, I have discussed with her nurse, she is doing fine, oriented, weakness, but on physical examination, she still has left leg drift Dr. America Cuenca's input appreciated UDS, 02/03/2025: Amphetamine WBC/HB/PLT/MCV, 02/14/2025: 5.8/7.2/590/61.9 CMP, 02/14/2025: Unremarkable TG/HDL/LDL/HDL, 02/14/2025: 68/141/100/44 Echocardiogram, 02/14/2025: HYPERDYNAMIC LV DUE TO TACHYCARDIA LV EF IS 70% NORMAL VALVES NORMAL RV FUNCTION NO EFFUSION CT head, 02/13/2025: Chronic ischemic changes without evidence of acute intracranial process. CTA head, neck, 02/13/2025: 1. No aneurysmal dilatation or significant stenosis about the [place]. 2. No significant stenosis of the bilateral cervical carotid arteries or vertebral arteries. 3. Mild paranasal sinus disease. 4. [place] tonsillar hypertrophy with mild narrowing of the oropharyngeal airway, without evidence of tonsillar abscess. 5. Multiple dental caries. Recommend outpatient dental consultation. 6. Thyroid nodules. Recommend outpatient thyroid ultrasound. 7. Cervical degenerative disc disease and facet arthropathy with [id number] spinal canal stenosis at C5-C6 and C6-C7, multilevel significant neural foraminal stenosis as above. Recommend follow-up outpatient noncontrast MRI of the cervical spine for better characterization as there may be mass effect on the cervical spinal cord at multiple levels. MRI head, 02/13/25: Tiny foci of acute infarct along the right caudate body / right parietal lobe vital signs Vital Sign Date Time Temp Pulse Resp B/P (MAP) Pulse Ox O2 Delivery O2 Flow Rate FiO2 02/15/25 20:00 91 18 97 Room Air* 0 21 02/15/25 17:01 98.9 122/67 (85) 98.9 Total Intake and Output 02/14/25 02/14/25 02/15/25 15:00 23:00 07:00 Intake Total 300 ml 1000 ml 400 ml Balance 300 ml 1000 ml 400 ml medications Current Medications Medications Dose Ordered Sig/Abraham Route Start Time Stop Time Status Last Admin Dose Admin Labetalol HCl 10 mg Q2HPRN PRN IV 02/13/25 16:45 Melatonin 10 mg PRN PO 02/13/25 20:30 02/15/25 21:13 10 MG Acetaminophen 650 mg Q8HPRN PRN PO 02/13/25 20:45 02/15/25 21:14 650 MG Ferrous Sulfate 325 mg BIDWM PO 02/14/25 18:00 02/15/25 17:30 325 MG Amlodipine Besylate 10 mg DAILY PO 02/14/25 10:00 02/15/25 08:51 10 MG Atorvastatin Calcium 20 mg HS PO 02/14/25 22:00 02/15/25 21:14 20 MG Clopidogrel Bisulfate 75 mg DAILY PO 02/15/25 10:00 03/08/25 23:00 02/15/25 08:50 75 MG Nicotine 1 patch DAILY TD 02/16/25 10:00 objective General: the patient is well developed and nourished. No acute distress. MENTAL STATUS: Subjective SPEECH, LANGUAGE, HIGHER CORTICAL FUNCTION: no aphasia or dysathria. CRANIAL NERVES: Pupils are equal, round and reactive. EOMs full and conjugate. Mild bilateral gaze evoked nystagmus. Facial sensation intact in all three divisions bilaterally. Mandibular strength intact. Facial muscles symmetrical and strength intact. Tongue midline. No fasciculations or atrophy. SENSATION: Sensation to touch and pinprick is normal. MOTOR: Normal tone in the upper and lower extremity. Normal muscle bulk. No fasciculations. No abnormal movements or posturing. Muscle strength of the major groups in the right extremities is 5/5. Muscle strength of the major groups in the left extremities is close to 5/5, with mild drift in both arms and leg REFLEXES: Deep tendon reflexes are symmetrical. No pathological reflexes. CEREBELLAR/COORDINATION: Finger to nose and heel to mckee are normal bilaterally. GAIT/STATION: deferred laboratory and microbiology Laboratory Tests 02/14/25 09:38 Test 02/14/25 09:38 Range/Units Serum Glucose 129 H 74-106 mg/dL Problem List Acute cognitive dysfunction, left hemiparesis, secondary to acute stroke, good recovery Acute memory loss Secondary to acute stroke ? Partial complex seizure UDS: Positive for amphetamine Assessment/Plan Monitoring Supportive treatment Telemetry EEG VISH Aspirin 81 mg daily Plavix 75 mg daily for 21 days Lipitor 20 mg for now Quit smoking Stroke risk factors discussed, include tobacco smoking, sleep related breathing disorder, substance abuse Healthy lifestyle discussed More recommendation per clinical course This medical document was created using an electronic medical record system with [employer] dictation system. Although this document has been carefully reviewed, there may still be some phonetic and typographical errors. These areas are purely typographical due to imperfections of the software programs, and do not reflect any compromise in the patient's medical care. Prognosis poor Plan discussed with: Patient, Other LAUREN ZAMARRIPA MD Feb 15, 2025 21:18
--- NOTE | 2025-02-15 23:48 | DVHPN2 ---
Progress Note - Dictate Date Seen: Feb 15, 2025 Medical Necessity Reason Pt with a Central, PICC or Fol: No Subjective Patient was seen and evaluated in follow up. No overnight events. Motor deficits resolved. Echocardiogram shows an EF of 70%. Telemetry reviewed. vital signs Vital Sign Date Time Temp Pulse Resp B/P (MAP) Pulse Ox O2 Delivery O2 Flow Rate FiO2 02/15/25 21:00 98.4 92 20 125/72 (89) 96 98.4 02/15/25 20:00 Room Air* 0 21 Total Intake and Output 02/14/25 02/14/25 02/15/25 15:00 23:00 07:00 Intake Total 300 ml 1000 ml 400 ml Balance 300 ml 1000 ml 400 ml medications Current Medications Medications Dose Ordered Sig/Abraham Route Start Time Stop Time Status Last Admin Dose Admin Labetalol HCl 10 mg Q2HPRN PRN IV 02/13/25 16:45 Melatonin 10 mg PRN PO 02/13/25 20:30 02/15/25 21:13 10 MG Acetaminophen 650 mg Q8HPRN PRN PO 02/13/25 20:45 02/15/25 21:14 650 MG Ferrous Sulfate 325 mg BIDWM PO 02/14/25 18:00 02/15/25 17:30 325 MG Amlodipine Besylate 10 mg DAILY PO 02/14/25 10:00 02/15/25 08:51 10 MG Atorvastatin Calcium 20 mg HS PO 02/14/25 22:00 02/15/25 21:14 20 MG Clopidogrel Bisulfate 75 mg DAILY PO 02/15/25 10:00 03/08/25 23:00 02/15/25 08:50 75 MG Nicotine 1 patch DAILY TD 02/16/25 10:00 objective GENERAL: Alert and oriented x 3. No acute distress. EYES: PERRL, EOMI. Anicteric. HENT: Moist mucous membranes. LUNGS: Clear to auscultation bilaterally. CARDIOVASCULAR: Regular rate and rhythm. ABDOMEN: Soft, non-tender and non-distended. EXTREMITIES: No edema. NEUROLOGIC: Left sided weakness. SKIN: Warm, dry. laboratory and microbiology Laboratory Tests 02/14/25 09:38 Test 02/14/25 09:38 Range/Units Serum Glucose 129 H 74-106 mg/dL Problem List Acute CVA. Hypokalemia. Hypertensive crisis. Assessment/Plan Continued all current supportive medical care. Amlodipine, Labetalol. Lipitor, Plavix. Additional plan as per the hospital course. Plan discussed with: Patient ELINOR BALES MD Feb 15, 2025 23:48
[2025-02-16 01:00] VITALS: BP 136/81; PULSE 88; RESP 20; TEMP 97.5; O2SAT 96
[2025-02-16 05:00] VITALS: BP 144/83; PULSE 92; RESP 18; TEMP 97.9; O2SAT 98
[2025-02-16 08:00] VITALS: PULSE 91; RESP 18; O2SAT 97
[2025-02-16 09:10] VITALS: BP_SYST 146; BP_SYST 156; BP_DIAS 79; BP_DIAS 93; PULSE 90; RESP 18; TEMP 98.2; O2SAT 94; O2SAT 98
[2025-02-16] MEDS: NICOTINE 21MG/24 HR TOPICAL PATCH TD SCH (10:16)
[2025-02-16] MEDS ORDERED: CLOP75TA28 PO (10:40)
[2025-02-16] MEDS ORDERED: ASPI1TAB20 PO (10:40)
[2025-02-16] MEDS ORDERED: ATOR40TA52 PO (10:40)
[2025-02-16] MEDS ORDERED: AMLO1TAB23 PO (10:40)
--- NOTE | 2025-02-16 10:47 | DVHDS2 ---
Discharge Summary Date of Admission Feb 13, 2025 at 06:19 Date of Discharge: Feb 16, 2025 Admitting Diagnosis Acute CVA Labs/Diagnostic Data: Laboratory Results Test 02/14/25 09:38 02/13/25 08:56 02/13/25 06:55 02/13/25 03:26 White Blood Count 5.8 10^3/uL (4.4-10.8) Red Blood Count 4.00 10^6/uL (4.0-5.20) Hemoglobin 7.2 g/dL (12.2-16.2) Hematocrit 24.8 % (36.0-46.0) Mean Corpuscular Volume 61.9 fL (80.0-100.0) Mean Corpuscular Hemoglobin 18.0 pg (28.0-32.0) Mean Corpuscular Hemoglobin Concent 29.1 g/dL (32.0-36.0) Red Cell Distribution Width 22.7 % (11.8-14.3) Platelet Count 590 10^3/uL (140-450) Mean Platelet Volume 6.5 fL (6.9-10.8) Neutrophils (%) (Auto) 58.0 % (37.0-80.0) Lymphocytes (%) (Auto) 27.3 % (10.0-50.0) Monocytes (%) (Auto) 8.4 % (0.0-12.0) Eosinophils (%) (Auto) 4.8 % (0.0-7.0) Basophils (%) (Auto) 1.5 % (0.0-2.0) Neutrophils # (Auto) 3.4 10 ^3/uL (1.6-8.6) Lymphocytes # (Auto) 1.6 10 ^3/uL (0.4-5.4) Monocytes # (Auto) 0.5 10 ^3/uL (0-1.3) Eosinophils # (Auto) 0.3 10 ^3/uL (0-0.8) Basophils # (Auto) 0.1 10 ^3/uL (0-0.2) Nucleated Red Blood Cells 0.1 % Sodium Level 139 mmol/L (136-145) Potassium Level 3.3 mmol/L (3.5-5.1) Chloride Level 109 mmol/L (98-107) Carbon Dioxide Level 22 mmol/L (20-31) Anion Gap 8 (5-15) Blood Urea Nitrogen 9 mg/dL (9-23) Creatinine 0.75 mg/dL (0.550-1.02) Glomerular Filtration Rate Calc 97 mL/min (>90) BUN/Creatinine Ratio 12.0 (10.0-20.0) Serum Glucose 129 mg/dL (74-106) Calcium Level 8.1 mg/dL (8.7-10.4) Total Bilirubin 0.7 mg/dL (0.2-1.0) Aspartate Amino Transferase (AST) 30 U/L (13-40) Alanine Aminotransferase (ALT) 25 U/L (7-40) Alkaline Phosphatase 113 U/L (46-116) Total Protein 7.1 g/dL (5.7-8.2) Albumin 4.0 g/dL (3.2-4.8) Triglycerides Level 68 mg/dL (< 150) Cholesterol Level 141 mg/dL (< 200) LDL Cholesterol 100 mg/dL (< 100) HDL Cholesterol 44 mg/dL (40-59) Urine Opiates Screen Neg (NEGATIVE) Urine Fentanyl Screen Neg (NEGATIVE) Urine Barbiturates Screen Neg (NEGATIVE) Urine Phencyclidine Screen Neg (NEGATIVE) Urine Amphetamines Screen Pos (NEGATIVE) Urine Benzodiazepines Screen Neg (NEGATIVE) Urine Cocaine Screen Neg (NEGATIVE) Urine Cannabinoids Screen Neg (NEGATIVE) Prothrombin Time 10.6 sec (9.3-11.8) Prothrombin Time INR 1.00 (0.9-1.15) Activated Partial Thromboplast Time 21.1 SEC (24.5-34.5) Troponin I High Sensitivity 14 ng/L (</=34) Platelet Estimate Increased Hypochromasia (manual) Moderate Anisocytosis (manual) Slight Microcytosis Moderate Iron Level 12 ug/dL (50-170) Total Iron Binding Capacity 503 ug/dL (250-425) Percent Iron Saturation 2.4 % (15-50) Ferritin 4.0 ng/mL (10-291) Other Laboratory Tests 02/14/25 09:38 Brief Hx & Hospital Course: History of Present Illness Ms. Terrance Orr is a 49-year-old female with no known allergies who presented to the ED with acute onset neurologic symptoms. Approximately 30 minutes prior to arrival, the patient developed slurred speech, left-sided weakness and gaze deviation. Initial examination she was noted to have dysarthria left lower extremity weakness(2/5 strenght), and left upper extremity weakness(3/5 strength). There was also evidence of divergent gaze. Head CT scan showed no acute intracranial hemorrhage but did reveal chronic ischemic changes and old lacunar infarcts in the right basal ganglia and right frontal periventricular white matter. MRI of the head and CT scan of the neck are pending. After tele neurology consultation, the patient was deemed a candidate for IV tPA, as she presented within the 3-hour window and had no contraindications. Blood pressure goal prior to tPA initiation was set to less than 180/105. Nicardipine and hydralazine was used to control blood pressure, which was 191/103. Urine drug screen ordered. The patient was found to have potassium 3.1, which was repleted with KCl. EKG revealed no arrhythmia or ischemic changes.Neuro checks every 2 hours and we will admit the patient to ICU. Course of hospitalization: Patient was evaluated by tele Neurology, with patient receiving out placed therapy for acute stroke. Patient had improvement with her slurred speech as well as left upper and lower extremity motor deficits. Patient had challenging course of hospitalization given her polysubstance abuse. The day of receiving alter placed, the patient left the emergency room to go outside to smoke. Patient also was found to have alcohol in her belongings while in the ICU. Long discussion was made with the patient regarding her need to have abstinence from her polysubstance abuse. Patient was also scheduled by Cardiology to have VISH today, for which the patient states she does not want to with the procedure and wants to leave the hospital against medical advice. Patient states that she will follow up with the primary doctor. Despite leaving against medical advice, she will be given a prescription for Plavix, aspirin, atorvastatin, amlodipine. Physical examination General: Alert and Oriented x3. No acute distress. Well-nourished. Eyes: EOMI. Anicteric. HENT: Moist mucous membranes. Lungs: Clear to auscultation bilaterally. No accessory muscle use. Cardiovascular: Regular rate and rhythm. No murmur. No JVD. Abdomen: Soft, non-tender and non-distended. No palpable masses. Extremities: No edema. Non-tender. Skin: No rashes or lesions. Warm. Neurologic: No focal neurological deficits. CN II-XII grossly intact, but not individually tested. Psychiatric: Cooperative. Appropriate mood and affect. Total time spent with patient discussing and formulating plan of care: 35 minutes. This medical document was created using an electronic medical record system with [employer] dictation system. Although this document has been carefully reviewed, there may still be some phonetic and typographical errors. These areas are purely typographical due to imperfections of the software programs, and do not reflect any compromise in the patient's medical care. Consults/Reason for consult Neurology: Acute stroke Cardiology: VISH Condition at Discharge: Poor Final Diagnosis/Problems List Acute CVA Secondary diagnosis: -hypokalemia -hypertensive crisis -polysubstance abuse including nicotine dependence, amphetamine use, EtOH Discharge Disposition: AMA Discharge Instruct/Medications Diet: Cardiac 2g Na,low cholest (2 gm sodium, low cholesterol) Scheduled Amlodipine Besylate (Amlodipine Besylate), 1 TAB PO DAILY Aspirin (Aspir-81), 1 TAB PO DAILY Atorvastatin Calcium (Atorvastatin Calcium), 1 TAB PO QPM Clopidogrel Bisulfate (Plavix), 1 TAB PO DAILY 36 Discharge Statement: "Patient was advised to return to the ER or call 911 if any headaches, dizziness, shortness of breath, chest pain, abdominal pain, bleeding, fevers, or worsening of medical condition. Patient was counseled about treatment plan, medications, possible side effects, patientverbalized understanding. All questions were answered to the best of my ability. This discharge took greater then 30 minutes in planning, reviewing documentation, counseling the patient, and discussing with other team members." ASSESSMENT ASSESSMENT Assessment Date of Service: Feb 16, 2025 Billing Provider: ERWIN SWAIN NP Common Visit Codes: 47895-NRQ/OBS DISCH DAY >30min ERWIN SWAIN NP Feb 16, 2025 10:47
--- NOTE | 2025-02-16 21:46 | DVHEEG2 ---
Neurology EEG Procedural Note Procedural Note EXAM DATE: 02/15/2025 REFERRING DOCTOR: Dr. Zamarripa TECHNIQUE: Eighteen channels of EEG, 2 channels of EOG, and 1 channel of EKG were recorded using the [employer] 10/20 system. CLINICAL DATA: The patient was referred for an EEG evaluation for the evidence of seizure disorder. MEDICATIONS: See the chart BACKGROUND ACTIVITY: While the patient was awake, the background activity consisted of well regulated 10 Hz rhythmic waveforms, symmetrically distributed over both posterior quadrants and was reactive to eye opening. ACTIVATION: Hyperventilation: Not done Photic Stimulation: Not done Sleep: Not seen IMPRESSION: This is a normal EEG. No focal, lateralized, or epileptiform features are noted. If clinically indicated to rule out a seizure disorder, recommend repeat EEG with sleep deprivation. The EKG channel showed a regular heart rate of 90/minute [place] [address] LUAREN ZAMARRIPA MD Feb 16, 2025 21:46
--- NOTE | 2025-02-16 22:02 | DVHPN2 ---
Progress Note - Dictate Date Seen: Feb 16, 2025 Medical Necessity Reason Pt with a Central, PICC or Fol: No Subjective Patient was seen and evaluated in follow up. Patient has no new complaints. Patient is stable on room air. Pending EEG. Telemetry reviewed. vital signs Vital Sign Date Time Temp Pulse Resp B/P (MAP) Pulse Ox O2 Delivery O2 Flow Rate FiO2 02/16/25 10:16 146/93 02/16/25 09:10 98.2 90 18 98 98.2 02/16/25 08:00 Room Air* 0 21 Total Intake and Output 02/15/25 02/15/25 02/16/25 15:00 23:00 07:00 Intake Total 440 ml Balance 440 ml objective GENERAL: Alert and oriented x 3. No acute distress. EYES: PERRL, EOMI. Anicteric. HENT: Moist mucous membranes. LUNGS: Clear to auscultation bilaterally. CARDIOVASCULAR: Regular rate and rhythm. ABDOMEN: Soft, non-tender and non-distended. EXTREMITIES: No edema. NEUROLOGIC: Left sided weakness. SKIN: Warm, dry. laboratory and microbiology Laboratory Tests 02/14/25 09:38 Test 02/14/25 09:38 Range/Units Serum Glucose 129 H 74-106 mg/dL Problem List Acute CVA. Hypokalemia. Hypertensive crisis. Assessment/Plan Continued all current supportive medical care. Amlodipine, Labetalol. Lipitor, Plavix. Additional plan as per the hospital course. Plan discussed with: Patient ELINOR BALES MD Feb 16, 2025 22:02
== END 2025-02-16 11:00 | disposition left against medical advice (07) | DRG 45 ==
LOC: ER 03:08 → OVERFLOW 06:19 → ICU CENTRL 17:53 → TELE-CENTR 02-14 18:03
PROVIDERS: ADMIT Nurse Practitioner Acute Care; ATTEND Nurse Practitioner Acute Care
DX: I63.89 Other cerebral infarction (principal); G81.94 Hemiplegia, unspecified affecting left nondominant side; E87.6 Hypokalemia; D50.9 Iron deficiency anemia, unspecified; F19.10 Other psychoactive substance abuse, uncomplicated; F15.90 Other stimulant use, unspecified, uncomplicated; F32.A Depression, unspecified; I16.9 Hypertensive crisis, unspecified; Z53.29 Procedure and treatment not carried out because of patient's decision for other reasons; Z82.5 Family history of asthma and other chronic lower respiratory diseases; Z79.02 Long term (current) use of antithrombotics/antiplatelets; Z79.82 Long term (current) use of aspirin; Z87.891 Personal history of nicotine dependence; R47.81 Slurred speech
CPT/HCPCS: 36415; 70450; 70496; 70498; 70551; 71045; 80053; 80061; 80307; 82728; 83540; 83550; 84484; 85025; 85610; 85730; 87081; 93005; 93306; 95819; 96374; 96375; 99291; G0378; J3101